=== PATIENT | female | born 1990 | race African-American/Black ===

== ENCOUNTER 2017-12-06 16:07 | Emergency (ER) | payer OTHER ==
[2017-12-06] MEDS: MECLIZINE 12.5 MG TAB PO (18:17)
[2017-12-06] MEDS: SOD CHLORIDE 0.9% 1,000 ML IV (18:17)
[2017-12-06] MEDS: DIPHENHYDRAMINE 50 MG INJ IV (18:17)
[2017-12-06] MEDS: PROCHLORPERAZINE 10 MG INJ IV (19:09)
[2017-12-06] MEDS: KETOROLAC 30 MG INJ IV (19:10)
== END 2017-12-06 20:27 | disposition home or self-care (01) ==
LOC: FTE 16:07
DX: R51 Headache (principal); R11.0 Nausea
CPT/HCPCS: 81025; 96361; 96374; 96375; 99284-25

== ENCOUNTER 2018-02-16 11:34 | Emergency (ER) | payer OTHER ==
[2018-02-16] MEDS: ONDANSETRON (ODT) 4 MG TAB ODT (12:47)
== END 2018-02-16 13:23 | disposition home or self-care (01) ==
LOC: FTE 11:34
DX: R05 Cough (principal); R11.10 Vomiting, unspecified
CPT/HCPCS: 99283; Z7502

== ENCOUNTER 2018-12-19 14:13 | Emergency (ER) | payer OTHER ==
[2018-12-19 15:05] LABS: URINE BLOOD (Dip) POC 2+ (NEGATIVE); URINE GLUCOSE (Dip) POC Negative (NEGATIVE); URINE KETONES (Dip) POC Trace (NEGATIVE); URINE LEUKOCYTE EST (Dip) POC Negative (NEGATIVE); URINE NITRITE (Dip) POC Negative (NEGATIVE); URINE TOTAL PROTEIN POC 2+ (NEGATIVE)
[2018-12-19 15:05] LABS: URINE PH (Dip) POC 5.5 (5.0-8.5)
[2018-12-19] MEDS: ONDANSETRON (ODT) 4 MG TAB ODT (15:11)
[2018-12-19] MEDS: LORAZEPAM 1 MG TAB PO ×2 (15:11→16:26)
[2018-12-19] MEDS: SOD CHLORIDE 0.9% 500 ML IV (15:13)
[2018-12-19 15:18] LABS: ADD MAN DIFF? NO
[2018-12-19 15:27] LABS: BASOPHIL # 0.1 10^3/ul (0.0-0.1); BASOPHILS % 0.5 % (0.0-2.0); EOSINOPHILS # 0.3 10^3/ul (0.0-0.5); EOSINOPHILS % 2.5 % (0.0-7.0); HEMATOCRIT 38.4 % (37.0-47.0); LYMPHOCYTES # 3.7 10^3/ul (0.8-2.9); LYMPHOCYTES % 36.1 % (15.0-51.0); MEAN CORPUSCULAR HGB CONC 33.9 g/dl (32.0-37.0); MEAN CORPUSCULAR VOLUME 91.4 fl (82.0-101.0); MEAN PLATELET VOLUME 10.5 fl (7.4-10.4); MONOCYTE # 0.5 10^3/ul (0.3-0.9); MONOCYTES % 4.7 % (0.0-11.0); NEUTROPHIL # 5.6 10^3/ul (1.6-7.5); NEUTROPHILS % 55.7 % (39.0-77.0); PLATELET COUNT 418 10^3/UL (140-415); RED CELL DISTRIBUTION WIDTH 12.2 % (11.5-14.5)
[2018-12-19 15:27] LABS: WHITE BLOOD COUNT 10.1 10^3/ul (4.8-10.8)
[2018-12-19 17:31] LABS: ANION GAP 12 (5-13); BLOOD UREA NITROGEN 9 mg/dl (7-20); CARBON DIOXIDE 21 mmol/L (21-31); CHLORIDE 106 mmol/L (97-110); CREATININE 0.95 mg/dl (0.44-1.00); Estimated GFR > 60 mL/min (>60); GLUCOSE 95 mg/dl (70-220); POTASSIUM 3.8 mmol/L (3.5-5.1); SODIUM 139 mmol/L (135-144)
[2018-12-19 18:19] LABS: D-DIMER 496.91 ng/ml (<460)
== END 2018-12-19 19:22 | disposition home or self-care (01) ==
LOC: FTE 14:13
DX: F41.9 Anxiety disorder, unspecified (principal); G43.909 Migraine, unspecified, not intractable, without status migrainosus
CPT/HCPCS: 71046; 80048; 81003; 81025; 84443; 85025; 85378; 93005; 99285-25